=== PATIENT | male | born 1975 | race Caucasian/White ===

== ENCOUNTER 2024-04-30 11:01 | Emergency (ER) | payer OTHER ==
[2024-04-30] MEDS ORDERED: Sodium Chloride 0.9% 10 ML Syringe FLUSH PRN (11:08)
[2024-04-30] MEDS ORDERED: Naloxone 0.4 MG/ML SDV IVPUSH PRN (11:15)
[2024-04-30] MEDS: Sodium Chloride 0.9% 1,000 ML IV SCH (11:16)
[2024-04-30] MEDS: HYDROmorphone 2 MG/ML SDV IVPUSH ONE (11:18)
[2024-04-30 11:25] LABS: BASOPHILS PERCENT AUTO 0.4 % (0.3-3.8); BLOOD UREA NITROGEN,BUN 20 mg/dL (7-18); CALCIUM 9.4 mg/dL (8.6-10.2); CARBON DIOXIDE,CO2 28 mmol/L (21-32); CHLORIDE,CL 104 mmol/L (100-110); EOSINOPHILS ABSOLUTE AUTO 0.1 x10-3/uL (0.0-0.6); EOSINOPHILS PERCENT AUTO 1.1 % (0.1-6.8); EST CRCL DRUG DOSING (CG) 91.25 mL/min; ESTIMATED GFR 92 mL/min (>60); GLUCOSE RANDOM 169 mg/dL (80-116); HEMATOCRIT 49.1 % (38.3-50.1); HEMOGLOBIN 17.2 g/dL (12.9-17.7); LYMPHOCYTES ABSOLUTE AUTO 1.8 x10-3/uL (0.5-4.5); LYMPHOCYTES PERCENT AUTO 21.4 % (15.8-45.3); MEAN CORPUSCULAR HEMOGLOBIN 33.2 pg (27.0-33.3); MEAN CORPUSCULAR VOLUME 94.7 fL (80.8-98.7); MEAN PLATELET VOLUME 7.9 fL (6.7-11.0); MONOCYTES ABSOLUTE AUTO 0.6 x10-3/uL (0.0-1.2); MONOCYTES PERCENT AUTO 6.7 % (5.5-15.2); NEUTROPHILS ABSOLUTE AUTO 6.1 x10-3/uL (1.7-6.9); NEUTROPHILS PERCENT AUTO 70.4 % (40.3-71.8); PLATELET COUNT,PLT 198 x10(3)uL (117-477); POTASSIUM,K 4.2 mmol/L (3.5-5.3); RED BLOOD CELL COUNT 5.19 x10(6)uL (3.90-5.90); RED CELL DISTRIBUTION WIDTH 13.2 % (12.4-15.0); SODIUM,NA 141 mmol/L (135-145); WHITE BLOOD CELL COUNT,WBC 8.6 x10-3/uL (3.2-10.1)
[2024-04-30 11:31] LABS: ALANINE AMINOTRANSFERASE,ALT 140 U/L (12-36); ALBUMIN 3.6 g/dL (3.5-5.2); ALKALINE PHOSPHATASE 95 IU/L (56-112); ASPARTATE AMNIOTRANSFERASE,AST 53 IU/L (5-25); BILIRUBIN TOTAL 0.7 mg/dL (0.1-1.3); PROTEIN TOTAL,TP 7.1 g/dL (6.0-8.0)
[2024-04-30 11:58] LABS: BILIRUBIN,URINE NEGATIVE (NEGATIVE); GLUCOSE,URINE NORMAL (NORMAL); KETONES,URINE NEGATIVE (NEGATIVE); LEUKOCYTE ESTERASE,URINE NEGATIVE (NEGATIVE); NITRITE,URINE NEGATIVE (NEGATIVE); OCCULT BLOOD,URINE LARGE (NEGATIVE); PROTEIN,URINE NEGATIVE (NEGATIVE); UROBILINOGEN,URINE NORMAL (NEGATIVE)
[2024-04-30 12:03] LABS: APPEARANCE,URINE SLIGHTLY CLOUDY (CLEAR); BACTERIA,URINE MANY (NS); COLOR,URINE YELLOW (YELLOW); SQUAMOUS EPITHELIAL CELLS,UR FEW (NS,R,O); WBC,URINE 0-5 (0-5)
[2024-04-30] MEDS: fentaNYL 100 MCG/2 ML SDV IVPUSH ONE (12:08)
[2024-04-30] MEDS: Labetalol 20 MG/4 ML Syringe IVPUSH ONE (12:15)
[2024-04-30] MEDS: Ondansetron 4 MG/2 ML SDV IVPUSH ONE (13:12)
[2024-04-30] MEDS: Tamsulosin 0.4 MG Cap.ER PO ONE (13:14)
== END 2024-04-30 13:33 | disposition home or self-care (01) ==
LOC: FB.ED 11:01
DX: N20.2 Calculus of kidney with calculus of ureter (principal); I10 Essential (primary) hypertension
CPT/HCPCS: 74176; 80053; 81001; 83605; 85025; 86140; 93005; 96361; 96374; 96375; 99284; A9270; J1170; J1920; J2405; J3010; J7030; 93010